=== PATIENT | female | born 2000 | race African-American/Black ===

== ENCOUNTER 2024-09-28 14:18 | Emergency (ER) | payer OTHER ==
[2024-09-28 14:32] VITALS: TEMP 98.2; BMI 26.3
[2024-09-28 15:58] LABS: ABSOLUTE IMMATURE GRANULOCYTES 0.01 x10^3/uL (0.0-0.031); EOSINOPHILS # 0.04 x10^3/uL (0.04-0.36); HEMATOCRIT 38.8 % (34.1-44.9); HEMOGLOBIN 12.6 g/dL (11.2-15.7); MCHC 32.5 g/dl (32.2-35.5); MEAN CELL VOLUME 78.5 fl (79.4-94.8); MEAN PLT VOLUME 10.9 fl (9.4-12.3); MONOCYTE # 0.37 x10^3/uL (0.24-0.86); MONOCYTE % 8.9 % (4.7-12.5); PLATELET COUNT 192 x10^3/uL (182-369); RDW 14.2 % (12.1-16.5)
[2024-09-28 16:14] LABS: INR 1.22 (0.83-1.09); PROTHROMBIN TIME (PATIENT) 13.3 SEC (9.7-13.0)
[2024-09-28 16:17] LABS: ACTIVATED PTT 36.6 SECONDS (25.2-36.5)
[2024-09-28 16:27] LABS: CALCIUM 10.2 mg/dL (8.5-10.1)
[2024-09-28 16:28] LABS: ALBUMIN 3.5 g/dl (3.4-5.0); BLOOD UREA NITROGEN 8.1 mg/dL (7-18); MAGNESIUM 1.6 mg/dL (1.8-2.4)
[2024-09-28 16:31] LABS: CREATININE 0.6 mg/dL (0.55-1.3)
[2024-09-28 16:33] LABS: BILIRUBIN,TOTAL 0.9 mg/dL (0.2-1); TOT PROT 7.9 g/dl (6.4-8.2)
[2024-09-28 16:59] LABS: EPI CELLS >36 /uL (0-25.1); HYALINE CASTS 1 /uL (0-3.1); URINE APPEARANCE CLOUDY; URINE BACTERIA 1963 /uL (0-1359); URINE BILIRUBIN NEGATIVE (NEGATIVE); URINE COLOR YELLOW; URINE GLUCOSE (UA) NEGATIVE (NEGATIVE); URINE KETONE NEGATIVE (NEGATIVE); URINE LEUK ESTERASE 3+ (NEGATIVE); URINE NITRITE NEGATIVE (NEGATIVE); URINE PROTEIN NEGATIVE (NEGATIVE); URINE RBC 11 /uL (0-23.9); URINE UROBILINOGEN 0.2 mg/dL (0.2-1.0); URINE WBC 204 /uL (0-25.8)
[2024-09-28 17:28] LABS: HCV DIAGNOSTIC IN-HOUSE W/RFLX NON-REACTIVE (NONREACTIVE); HIV INTERPRETATION NEGATIVE (NEGATIVE)
[2024-09-28 20:30] VITALS: BP 103/54; PULSE 104; RESP 20
== END 2024-09-28 20:37 | disposition home or self-care (01) ==
LOC: JER 14:18
DX: N39.0 Urinary tract infection, site not specified (principal); R53.1 Weakness; R06.02 Shortness of breath; R30.9 Painful micturition, unspecified; R63.8 Other symptoms and signs concerning food and fluid intake
CPT/HCPCS: 0241U-QW; 36415; 71275-TC; 80053; 81003; 83735; 84439; 84443; 84484; 84703; 85025; 85379; 85610; 85730; 86803; 87389; 93005; 93010; 99285-25